=== PATIENT | female | born 1930 | race Caucasian/White ===

== ENCOUNTER 2017-05-07 06:38 | Inpatient (IN) | payer OTHER ==
[2017-05-07] VITALS (7 sets, daily range): BP systolic 70–158; BP diastolic 23–80
[~2017-05-07] VITALS: Ht 152.4 cm; Wt 39.6 kg
[~2017-05-07 06:38] MED LIST: ARICEPT 5 MG TAB5 MG PO; ATENOLOL 50 MG50 M1 PO; CYMBALTA30 MG PO; DUONEB 2.5-0.5 M3 ML; HYDROCHLOROTHIA25 M1 PO; HYDROCODONE-APA1 TA1; KLOR-CON 1010 MEQ PO; LASIX; LEVOXYL100 MCG PO; LISINOPRIL10 MG PO; MILK OF MA2400 MG/10 PO; MIRALAX17 GM; MOBIC15 MG PO; NAMENDA 10 MG T10 MG PO; NAMENDA XR14 MG; NORCO 5-325 TA1 EACH PO; NYAMYC15 GM; PLAVIX 75 MG TA75 M1 PO; PRINIVIL20 MG PO; SIMVASTATIN40 MG PO; TYLENOL325 MG PO; VERAPAMIL E.R240 M1 PO; VERAPAMIL ER120 MG PO
[2017-05-07] MEDS ORDERED: COLACE100 MG PO (06:45)
[2017-05-07] MEDS ORDERED: GUAIFENESIN ER600 MG PO (06:46)
[2017-05-07] MEDS ORDERED: HYDROCODONE-ACE15 ML PO ×2 (06:47)
[2017-05-07] MEDS ORDERED: DUONEB 2.5-0.5 M3 ML INH (06:48)
[2017-05-07 07:04] LABS: ABSOLUTE NEUTROPHILS 11.3 thou/uL (1.4-8.2); BASOPHILS 0.3 % (0.0-2.0); EOSINOPHILS 0.1 % (0.0-3.0); HEMATOCRIT 41.7 % (37.0-47.0); HEMOGLOBIN 13.8 gm/dL (12.0-15.0); LYMPHOCYTES 10.9 % (24.0-44.0); MCH 29.4 pg (26.0-34.0); MCHC 33.2 g/dL (28.0-37.0); MCV 88.6 fL (80.0-100.0); MONOCYTES 4.6 % (1.0-8.0); PLATELET COUNT 387 thou/uL (150-400); POLYS 84.1 % (36.0-66.0); RDW 13.7 % (10.5-14.5); WBC 13.5 thou/uL (4.0-11.0)
[2017-05-07 07:33] LABS: URINE BILIRUBIN NEGATIVE (Negative); URINE BLOOD 1+ (Negative); URINE CLARITY CLEAR; URINE COLOR YELLOW; URINE GLUCOSE-RANDOM* NEGATIVE (Negative); URINE KETONES NEGATIVE (Negative); URINE NITRITE-REFLEX NEGATIVE (Negative); URINE PROTEIN (DIPSTICK) NEGATIVE (Negative); URINE UROBILINOGEN 0.2 E.U./dl (0.2-1.0)
[2017-05-07 07:34] LABS: URINE LEUKOCYTES-REFLEX 3+ (Negative)
[2017-05-07 07:49] LABS: CALCIUM 8.4 mg/dL (8.5-10.1); CREATININE 1.6 mg/dL (0.6-1.0); POTASSIUM 4.4 mmol/L (3.5-5.1)
[2017-05-07 07:54] LABS: CASTS None Seen /LPF (None Seen); SQUAMOUS 4-10 Moderate /LPF (0-3)
[2017-05-07 07:55] LABS: BACTERIA-REFLEX >30 Many /HPF (None Seen); URINE WBC-REFLEX >25 Many /HPF (0-5)
[2017-05-07 07:56] LABS: AMORPHOUS URATES Moderate /LPF (None Seen); URINE RBC 3-10 Few /HPF (0-2)
[2017-05-08 04:38] LABS: HEMATOCRIT 42.3 % (37.0-47.0); HEMOGLOBIN 14.1 gm/dL (12.0-15.0); MCH 29.8 pg (26.0-34.0); MCHC 33.3 g/dL (28.0-37.0); MCV 89.6 fL (80.0-100.0); RBC 4.72 mil/uL (4.20-5.00); RDW 13.9 % (10.5-14.5); WBC 9.9 thou/uL (4.0-11.0)
[2017-05-08 04:47] LABS: CALCIUM 8.8 mg/dL (8.5-10.1); CREATININE 0.7 mg/dL (0.6-1.0); POTASSIUM 3.6 mmol/L (3.5-5.1)
[2017-05-08 07:35] VITALS: BP 187/118
[2017-05-08 11:45] VITALS: BP 154/66
[2017-05-08 16:00] VITALS: BP 176/128
[2017-05-09] VITALS: BP 152/66
[2017-05-09 06:15] VITALS: BP 129/96
[2017-05-09 08:15] VITALS: BP 157/107
[2017-05-09 16:45] VITALS: BP 127/83
[2017-05-09 20:21] VITALS: BP 129/82
[2017-05-10 04:21] VITALS: BP 133/82
[2017-05-10 08:10] VITALS: BP 140/95
[2017-05-10 11:45] VITALS: BP 90/62
[2017-05-10 15:50] VITALS: BP 131/91
[2017-05-10] MEDS ORDERED: PROBIOTIC1 EAC1 PO (15:50)
[2017-05-10] MEDS ORDERED: CEFUROXIME500 MG PO (15:50)
== END 2017-05-10 19:52 | DRG 871 ==
LOC: ER 06:38 → 2N 08:10 → EROBS 08:10 → 2N 11:36
PROVIDERS: Emergency Medicine; Hospitalist
DX: A41.9 Sepsis, unspecified organism (principal); R65.21 Severe sepsis with septic shock; N39.0 Urinary tract infection, site not specified; I69.354 Hemiplegia and hemiparesis following cerebral infarction affecting left non-dominant side; I10 Essential (primary) hypertension; B96.20 Unspecified Escherichia coli [E. coli] as the cause of diseases classified elsewhere; E03.9 Hypothyroidism, unspecified; E86.0 Dehydration; E78.5 Hyperlipidemia, unspecified; F03.90 Unspecified dementia, unspecified severity, without behavioral disturbance, psychotic disturbance, mood disturbance, and anxiety; F32.9 Major depressive disorder, single episode, unspecified; Z79.02 Long term (current) use of antithrombotics/antiplatelets; Z79.899 Other long term (current) drug therapy; Z88.6 Allergy status to analgesic agent
CPT/HCPCS: 10081

== ENCOUNTER 2017-06-01 12:44 | Emergency (ER) | payer OTHER ==
[~2017-06-01] VITALS: Ht 157.5 cm; Wt 59.0 kg
--- NOTE | ~2017-06-01 | EKG ---
[facility] [place] [address] ELECTROCARDIOGRAM REPORT Name: TOPHER WARD Claudia Room #: [facility]#: [id number] Admission: 06/01/17 Attend Phys: Discharge: Date of : [birth year] Report #: [id number] THIS REPORT FOR: //name// [facility] ED Test Date: 2017-06-01 Test Time: 13:19:10 Pat Name: TOPHER WARD Department: Room: Gender: F [employer]oundskeeping Maintenance Worker: : [id number] Requested By: Viky Edmondson Order Number: [id number] MD: Erik Avelar Measurements Intervals Fitzgerald Rate: 78 P: 61 SD: 186 QRS: 44 QRSD: 91 T: 52 QT: 406 QTc: 463 Interpretive Statements Sinus rhythm Consider left ventricular hypertrophy Compared to ECG 06/29/2012 12:47:07 ST and T wave abnormality is less pronounced Electronically Signed On 06-01-2017 17:06:17 CDT by Erik Avelar [email or web address] <ELECTRONICALLY SIGNED> By: Erik Avelar MD, [facility] 06/01/17 1706 1319 1319 Erik Avelar MD, FACC /EPI
[~2017-06-01 12:44] MED LIST changes: +CEFUROXIME500 MG PO; +COLACE100 MG PO; +DUONEB 2.5-0.5 M3 ML INH; +GUAIFENESIN ER600 MG PO; +HYDROCODONE-ACE15 ML PO; +PROBIOTIC1 EAC1 PO
[2017-06-01 13:56] LABS: ABSOLUTE NEUTROPHILS 5.5 thou/uL (1.4-8.2); BASOPHILS 1.3 % (0.0-2.0); EOSINOPHILS 2.8 % (0.0-3.0); HEMATOCRIT 43.8 % (37.0-47.0); HEMOGLOBIN 14.8 gm/dL (12.0-15.0); LYMPHOCYTES 25.5 % (24.0-44.0); MCH 30.2 pg (26.0-34.0); MCHC 33.9 g/dL (28.0-37.0); MCV 89.1 fL (80.0-100.0); PLATELET COUNT 455 thou/uL (150-400); POLYS 62.4 % (36.0-66.0); RBC 4.91 mil/uL (4.20-5.00); WBC 8.8 thou/uL (4.0-11.0)
[2017-06-01 14:07] LABS: CALCIUM 9.5 mg/dL (8.5-10.1); CREATININE 0.8 mg/dL (0.6-1.0); POTASSIUM 4.1 mmol/L (3.5-5.1)
[2017-06-01 14:37] LABS: URINE BILIRUBIN NEGATIVE (Negative); URINE BLOOD 1+ (Negative); URINE CLARITY CLEAR; URINE COLOR YELLOW; URINE GLUCOSE-RANDOM* NEGATIVE (Negative); URINE KETONES NEGATIVE (Negative); URINE LEUKOCYTES 3+ (Negative); URINE NITRITE NEGATIVE (Negative); URINE PROTEIN (DIPSTICK) NEGATIVE (Negative); URINE SPECIFIC GRAVITY <= 1.005 (1.005-1.035); URINE UROBILINOGEN 0.2 E.U./dl (0.2-1.0)
[2017-06-01 14:46] LABS: CASTS None Seen /LPF (None Seen); CRYSTALS None Seen /LPF (None Seen); SQUAMOUS 4-10 Moderate /LPF (0-3)
[2017-06-01 14:47] LABS: BACTERIA >30 Many /HPF (None Seen); URINE RBC 3-10 Few /HPF (0-2); URINE WBC >25 Many /HPF (0-5)
[2017-06-01] MEDS ORDERED: KEFLEX500 M1 PO (15:10)
[2017-06-01 17:59] VITALS: BP 160/92
== END 2017-06-01 18:00 | disposition home or self-care (01) ==
LOC: ER 12:44
PROVIDERS: Emergency Medicine
DX: N39.0 Urinary tract infection, site not specified (principal); F03.90 Unspecified dementia, unspecified severity, without behavioral disturbance, psychotic disturbance, mood disturbance, and anxiety; E78.5 Hyperlipidemia, unspecified; E03.9 Hypothyroidism, unspecified; Z88.6 Allergy status to analgesic agent